=== PATIENT | female | born 2000 | race Caucasian/White ===

== ENCOUNTER 2024-09-04 14:48 | Emergency (ER) | payer SELFPAY ==
[~2024-09-04] VITALS: Ht 157.5 cm; Wt 87.5 kg
[2024-09-04 20:39] LABS: BILIRUBIN, URINE NEGATIVE (negative); BLOOD/HGB, URINE NEGATIVE (Negative); KETONE, URINE NEGATIVE (Negative); LEUK ESTERASE, URINE NEGATIVE (negative); NITRITE, URINE NEGATIVE (negative)
[2024-09-04 20:53] LABS: BASOPHILS 0.5 % (0-2); EOSINOPHILS 3.1 % (0-6); HEMATOCRIT 45.5 % (35.0-50.0); HEMOGLOBIN 15.7 g/dL (12.0-18.0); LYMPHOCYTES 41.6 % (24-44); MCH 32.5 (27-36); MCHC 34.5 g/dl (30-36); MONOCYTES 5.2 % (0-12); NEUTROPHILS 49.6 % (39-80); PLATELET COUNT 278 K/uL (140-440); RBC 4.84 M/ul (4.3-5.7); RDW 13.4 (10.5-15.0)
[2024-09-04] MEDS ORDERED: KETOROLAC TROMETHAMINE 30 MG/ML VIAL IV ONE (21:00)
[2024-09-04 21:08] LABS: ALBUMIN 4.4 g/dL (3.4-5.0); ALBUMIN/GLOBULIN RATIO 1.19 (1.1-2.4); ANION GAP 11.7 (7-21); BILIRUBIN, TOTAL 0.4 ng/dL (0.2-1.0); BUN/CREATININE RATIO 14.11 (6.0-28.6); CREATININE, SERUM 0.85 mg/dL (0.55-1.02); POTASSIUM 3.7 mmol/L (3.5-5.1); PROTEIN, TOTAL 8.1 g/dL (6.4-8.2)
[2024-09-04 21:40] VITALS: BP 128/80
== END 2024-09-04 21:40 | disposition home or self-care (01) ==
LOC: ED 14:48
PROVIDERS: Internal Medicine
DX: Z30.432 Encounter for removal of intrauterine contraceptive device (principal); R10.2 Pelvic and perineal pain
CPT/HCPCS: 36415; 80053; 81003; 83690; 83735; 84703; 85025; 96374; 99284-25; J1885